=== PATIENT | male | born 1940 | race Caucasian/White ===

== ENCOUNTER 2022-06-06 08:22 | Inpatient (IN) ==
[2022-06-02 18:54] LABS: Appearance,Urine CLEAR (Clear); Bilirubin,Urine Negative (Negative); Color,Urine YELLOW; Culture Indicated,Urine No; Glucose,Urine (UA) Negative (Negative); Ketones,Urine Negative (Negative); Leukocyte Esterase,Urine Negative /uL (Negative); Nitrate,Urine Negative (Negative); Protein,Urine Negative (Negative); Specific Gravity,Urine 1.016 (1.000-1.035); Urine Blood Negative (Negative); Urobilinogen,Urine Negative
[2022-06-02 18:57] LABS: Basophils # (Auto) 0.06 K/mcL (0.00-0.30); Basophils % (Auto) 0.7 % (0.0-2.0); Eosinophils # (Auto) 0.27 K/mcL (0.00-0.70); Eosinophils % (Auto) 3.4 % (0.0-7.0); Hematocrit 49.2 % (40.1-51.0); Hemoglobin 16.5 g/dL (13.7-17.5); Lymphocytes # (Auto) 1.13 K/mcL (1.50-4.80); Lymphocytes % (Auto) 14.1 % (15.5-49.0); Mean Cell Volume 96.3 fL (80.0-100.0); Mean Corpuscular HGB Conc 33.5 g/dL (31.0-36.0); Mean Platelet Volume 9.9 fL (8.8-12.5); Monocytes # (Auto) 0.72 K/mcL (0.10-0.90); Neutrophils % (Auto) 72.6 % (38.0-78.0); Platelet Count 250 K/mcL (140-440); RBC 5.11 M/mcL (4.63-6.08); Red Cell Distribution Width 13.2 % (11.5-14.5)
[2022-06-02 19:07] LABS: INR 2.8 (0.9-1.1)
[2022-06-02 19:17] LABS: Hemoglobin A1C 6.9 % Hgb (4.0-6.0)
[2022-06-02 19:19] LABS: ALT/SGPT 21 U/L (<40); AST/SGOT 19 U/L (<40); Albumin 4.4 gm/dL (3.2-5.2); Albumin/Globulin Ratio 1.7 (1.0-2.3); Alkaline Phosphatase 106 U/L (39-117); Bilirubin,Total 0.4 mg/dL (0.1-1.0); Blood Urea Nitrogen 21 mg/dL (8-23); Carbon Dioxide 26 mmol/L (22-30); Chloride 102 mmol/L (96-108); Globulin 2.6 gm/dL (2.2-3.7); Glomerular Filtration Rate 43; Glucose 171 mg/dL (70-105)
--- NOTE | 2022-06-03 09:12 | EKG ---
[facility] Test Date: 2022-06-02 Pat Name: Zak Harper Department: MEDSUR Room: Gender: Male General Handling Supervisor: : 1940 Requested By: Abhay Cat Order Number: [id number] Reading MD: Alcides Mccall Measurements Intervals [place] Rate: 60 P: 0 DE: 172 QRS: 209 QRSD: 132 T: 53 QT: 472 QTc: 472 Interpretive Statements Ventricular-paced complexes No further analysis attempted due to paced rhythm Electronically Signed On 06-03-2022 9:12:04 PDT by Alcides Mccall /store/[email or web address]/[id number]
[~2022-06-06 08:22] MED LIST: 0.9 % SODIUM CHLORIDE 250 ML IV SCH; IPRATROPIUM/ALBUTEROL 3 ML AMPUL.NEB NEB PRN; SCOPOLAMINE 1 PATCH PATCH TOPICAL PRN; ceFAZolin 2 GM in DEXTROSE 5% IN WATER 50 ML IV SCH
[2022-06-06 09:00] LABS: POC Calcium, Ionized 1.23 (1.16-1.32); POC Creatinine 1.6 (0.6-1.2); POC Potassium 5.5 (3.3-5.1)
[2022-06-06 09:01] LABS: POC INR 1.2 (0.8-1.2); POC Pro Time 13.9 (11.9-14.5)
[2022-06-06 13:37] LABS: POC Calcium, Ionized 1.31 (1.16-1.32); POC Creatinine 1.5 (0.6-1.2); POC Potassium 5.3 (3.3-5.1)
[2022-06-06] MEDS ORDERED: PROPOFOL 1,000 MG/100 ML BOTTLE IV ONE (14:06)
[2022-06-06] MEDS ORDERED: ROCURONIUM 10 MG/ML ML IV ONE (14:06)
[2022-06-06] MEDS ORDERED: PHENYLephrine 1 MG/10 ML SYRINGE (ANEST) ONE (14:06)
[2022-06-06] MEDS ORDERED: fentaNYL 100 MCG/2 ML VIAL IV ONE (14:06)
[2022-06-06] MEDS ORDERED: TRANEXAMIC ACID 1,000 MG/10 ML VIAL ONE (14:06)
[2022-06-06] MEDS ORDERED: SUGAMMADEX SODIUM 200 MG/2 ML VIAL IV ONE (14:06)
[2022-06-06] MEDS ORDERED: THROMBIN (BOVINE) 5,000 UNIT VIAL TOPICAL ONE (14:54)
[2022-06-06] MEDS ORDERED: BUPIVACAINE 0.25% 50 ML VIAL IJ ONE (14:54)
[2022-06-06] MEDS ORDERED: GELATIN SPONGE,ABSORBABLE 1 EACH SPONGE TOPICAL ONE (14:57)
[2022-06-06] MEDS ORDERED: LACTATED RINGERS 250 ML IV PRN ×2 (15:15→16:59)
[2022-06-06] MEDS ORDERED: MEPERIDINE 25 MG/ML VIAL IV PRN ×2 (15:15→16:59)
[2022-06-06] MEDS ORDERED: METOCLOPRAMIDE 10 MG/2 ML VIAL IV PRN ×2 (15:15→16:59)
[2022-06-06] MEDS ORDERED: METOPROLOL TARTRATE 5 MG/5 ML VIAL IV PRN ×2 (15:15→16:59)
[2022-06-06] MEDS ORDERED: IPRATROPIUM/ALBUTEROL 3 ML AMPUL.NEB NEB PRN ×2 (15:15→16:59)
[2022-06-06] MEDS ORDERED: PROMETHAZINE 25 MG/ML VIAL IM PRN ×2 (15:15→16:59)
[2022-06-06] MEDS ORDERED: LACTATED RINGERS 1,000 ML IV SCH ×2 (15:15→17:00)
[2022-06-06] MEDS ORDERED: MEPERIDINE 50 MG/ML VIAL IM PRN ×2 (15:15→16:59)
[2022-06-06] MEDS ORDERED: ONDANSETRON 4 MG/2 ML VIAL IV PRN ×3 (15:15→20:10)
[2022-06-06] MEDS ORDERED: ACETAMINOPHEN 1,000 MG/100 ML BAG IV ONE ×2 (15:15→16:59)
[2022-06-06] MEDS ORDERED: NALOXONE HCL 0.4 MG/ML VIAL IV PRN ×2 (15:15→16:59)
[2022-06-06] MEDS ORDERED: fentaNYL 100 MCG/2 ML VIAL IV PRN ×2 (15:15→16:59)
[2022-06-06] MEDS ORDERED: METHOCARBAMOL 1,000 MG/10 ML VIAL IV PRN ×2 (15:15→16:59)
[2022-06-06] MEDS ORDERED: PROMETHAZINE 25 MG/ML VIAL IV PRN ×2 (15:15→16:59)
[2022-06-06] MEDS ORDERED: HYDROmorphone 0.5 MG/0.5 ML SYRINGE IV PRN (16:59)
[2022-06-06] MEDS ORDERED: morphine 2 MG/ML VIAL IV PRN (16:59)
--- NOTE | 2022-06-06 17:29 | Brief Operative Note ---
Brief Operative Note Date of procedure: 06/06/22 Pre-op diagnosis: stenosis Post-op diagnosis: same Procedure: decompression and fusion L4/5 Grafts/Implants: Yes Anesthesia: GETA Findings: stenosis Complications: none Surgeon: Elian Galan Chief Clerk Shelter: Franca Johnson Estimated blood loss (cc): 200 Specimens Removed/Pathology: none sent Condition: stable Disposition: PACU
[2022-06-06] MEDS ORDERED: METHOCARBAMOL 750 MG TABLET PO PRN (17:33)
[2022-06-06] MEDS ORDERED: CLOBETASOL PROPIONATE 1 DOSE TUBE TOPICAL PRN (17:38)
[2022-06-06] MEDS ORDERED: NITROGLYCERIN 0.4 MG TAB.SUBL SL PRN (17:38)
[2022-06-06] MEDS: 0.9 % SODIUM CHLORIDE 1,000 ML IV SCH (19:03)
--- NOTE | 2022-06-06 19:37 | XRay Report ---
HISTORY: FINDINGS: IMPRESSION: 1.1 minute of fluoroscopy time was used. Interpreted and Authenticated by: Fransico Zacarias 06/06/22
[2022-06-06] MEDS: HYDROmorphone 1 MG/ML SYRINGE IV PRN ×2 (19:52→21:37)
[2022-06-06] MEDS ORDERED: ONDANSETRON 4 MG/2 ML VIAL ONE (20:26)
[2022-06-06] MEDS ORDERED: SACUBITRIL VALSARTAN PO SCH (21:00)
[2022-06-06] MEDS ORDERED: WARFARIN 2.5 MG TABLET PO SCH (21:00)
[2022-06-06] MEDS: GABAPENTIN 100 MG CAPSULE PO SCH (21:39)
[2022-06-06] MEDS: ATORVASTATIN 40 MG TABLET PO SCH (21:39)
[2022-06-06] MEDS: DOCUSATE SODIUM 100 MG CAPSULE PO SCH (21:39)
[2022-06-06] MEDS: MAGNESIUM OXIDE 400 MG TABLET PO SCH (21:39)
[2022-06-06] MEDS: METOPROLOL SUCCINATE 50 MG TAB.XL.24H PO SCH (21:39)
[2022-06-06] MEDS: SENNOSIDES 1 TABLET PO SCH (21:41)
[2022-06-06] MEDS: ceFAZolin 1 GM VIAL IV SCH (21:55)
[2022-06-07] MEDS: 0.9 % SODIUM CHLORIDE 10 ML SYRINGE IV SCH ×4 (00:26→20:29)
[2022-06-07] MEDS: 0.9 % SODIUM CHLORIDE 1,000 ML IV SCH ×4 (04:41→20:12)
[2022-06-07] MEDS: ceFAZolin 1 GM VIAL IV SCH (05:09)
[2022-06-07] MEDS ORDERED: 0.9 % SODIUM CHLORIDE 1,000 ML BAG IV ONE (05:28)
[2022-06-07] MEDS ORDERED: 0.9 % SODIUM CHLORIDE 500 ML IV ONE (05:33)
[2022-06-07 06:59] LABS: Hematocrit 42.6 % (40.1-51.0); Hemoglobin 13.9 g/dL (13.7-17.5)
[2022-06-07 07:17] LABS: INR 1.1 (0.9-1.1); Prothrombin Time 14.3 sec (11.9-14.5)
--- NOTE | 2022-06-07 07:27 | General Surgery Progress Note ---
SUBJECTIVE Subjective Patient information: Note initiated : 06/07/22 at 7:25 am Service Date, if different from initiated Date: [] Patient: Zak Harper 81 y/o M admitted on 06/06/22 for L4-5 Anterior Lateral Interbody Fusion with. Chief Complaint: [] Principal diagnosis: spondylolisthesis Interval history: no issues Pertinent ROS: neg Constitutional Vitals: Vital Signs Temp Pulse Resp BP Pulse Ox O2 Del Method O2 Flow Rate 98.5 F 59 L 16 82/44 94 1 06/07/22 02:51 06/07/22 02:51 06/07/22 02:51 06/07/22 05:15 06/07/22 02:51 06/07/22 02:51 06/07/22 02:51 Period Temp Pulse Resp BP Sys/Ac Pulse Ox O2 Del Method O2 Flow Rate Last 24 Hr 96.9 F-98.5 F 58-100 11- 82-137/44-84 91-100 Nasal Cannula- Room Air 1-6 Intake and Output 06/06/22 06/07/22 06/07/22 21:59 05:59 13:59 Intake Total 1050 2163 Output Total 260 230 Balance 790 1933 Weight 218 lb 4.8 oz Intake & Output: Intake & Output 06/06/22 06/07/22 06/07/22 21:59 05:59 13:59 Intake Total 1050 2163 Output Total 260 230 Balance 790 1933 Weight 218 lb 4.8 oz Intake: IV 150 963 Sodium Chloride 0.9% 1,000 ml @ 963 100 mls/hr IV .Q10H [facility] Rx#: [id number] Ancef 2 gm In Dextrose 5% in 50 Water 50 ml @ 100 mls/hr IV PREOP [facility] Rx#:[id number] Oral 1200 IV - Manual Only 900 Output: Drainage 20 Back 10 Left LOUANN Drain 10 Drainage 10 10 Left LOUANN Drain 10 Lower Back LOUANN Drain 10 Urine Catheter Amount 250 200 Other: Urine Appearance Clear Clear Urine Color Dark Yellow Dark Yellow Urine Odor Strong Normal Neurological Exam Neurological exam: Present normal gait Additional comments: neuro exam normal A/P Assessment and plan (1) Spinal stenosis at L4-L5 level: Status: Acute Plan mobilize with pt Narrative A/P Narrative: as mobilize Time Spent With Patient Time: Total time spent is greater than 50% in coordination of care (as documented) at patient's floor/unit and/or counseling patient:
[2022-06-07 07:43] LABS: Blood Urea Nitrogen 27 mg/dL (8-23); Calcium 8.7 mg/dL (8.6-10.4); Carbon Dioxide 22 mmol/L (22-30); Chloride 100 mmol/L (96-108); Glomerular Filtration Rate 43; Glucose 249 mg/dL (70-105)
[2022-06-07] MEDS ORDERED: 0.9 % SODIUM CHLORIDE 500 ML IV SCH (08:20)
[2022-06-07] MEDS ORDERED: INSULIN REGULAR, HUMAN 1 UNIT/0.01 ML UNIT IV SCH (08:20)
[2022-06-07] MEDS ORDERED: DEXTROSE 31 GM ORAL.SUSP PO PRN (08:22)
[2022-06-07] MEDS ORDERED: DEXTROSE 50% 50 ML VIAL IV PRN (08:22)
[2022-06-07] MEDS ORDERED: DEXTROSE 50% 50 ML SYRINGE IV SCH (08:30)
--- NOTE | 2022-06-07 08:31 | Operative Note ---
DATE OF OPERATION: 06/06/2022 DATE OF PROCEDURE: 06/06/2022 PREOPERATIVE DIAGNOSIS: Lumbar stenosis with instability, L4-L5. POSTOPERATIVE DIAGNOSIS: Lumbar stenosis with instability, L4-L5. OPERATION PROPOSED: 1. Anterior interbody fusion via lateral retroperitoneal approach, L4-L5 with application of prosthetic device interbody space. 2. Lumbar decompression with decompression of central canal, lateral recess, and neural foramen L4-L5, posterior instrumentation, L4-L5 posterior/posterolateral fusion L4-L5 and lumbar decompression with decompression of central canal, lateral recess, and neural foramen L4-L5. OPERATION PERFORMED: Same. SURGEON: Elian Galan M.D. MUFFLER HAND: Franca Johnson PA-C. The expertise and technical skill of this provider were required throughout the case. The PA assisted with preoperative coordination, intraoperative retraction, wound closure, and dressing and splint application, as well as postoperative documentation and care coordination. INDICATIONS: This is a gentleman who has had quite disabling claudication symptoms. He has stenosis with a spondylolisthesis, L4-L5 and has elected to proceed with lumbar decompression and fusion. DESCRIPTION OF PROCEDURE: Informed consent was obtained. He was taken to the operating room and provided with appropriate anesthetic and prophylactic antibiotics. He was carefully positioned. His flank was prepped sterilely. A standard retroperitoneal approach to the spine was performed. I sequentially dilated and placed a self-retaining retractor L4-L5. The disc was incised. I passed a Mcdonough, freeing the contralateral annulus. I then extensively curetted the disc space. I tried a variety of components and ultimately selected a 12 x 22 x 50 XLIF cage after thoroughly prepping the disc space. We removed the disc and debrided down to subchondral bone. This cage was filled with morselized graft and impacted into the site prepared for it. I then turned the patient in the prone position. A midline incision was made. I dissected down to expose spinous process and lamina of L4-L5. A lumbar decompression by removing the inferior one-half spinous process and lamina of L4 and the leading edge of L5 was performed essentially Galloway-Rivera osteotomies were done by removing a substantial amount of the facet joint. I then placed pedicle screws through stab wounds in the fascia. I applied a rosa in the top-loading pedicle screws. I compressed across the interbody graft and tightened and torqued the rosa and pedicle screws. Bone graft was applied into and against the facet joints and posterolateral aspect of the spine to allow for fusion. The wounds had been irrigated thoroughly. Hemostasis was ensured. We closed over a deep drain with an 0 Vicryl in interrupted fashion, 2-0 Vicryl inverted deep dermal and a running subcuticular. Procedure was tolerated well. No complications. ESTIMATED BLOOD LOSS: 100 mL. GDD:kaveh Job ID: [id number] Doc ID: [id number] Elian Galan MD
--- NOTE | 2022-06-07 08:32 | Internal Medicine Consult Note ---
HPI Date of Consult Consult Date: 06/07/22 Primary Care Provider: Obdulia Jason Consult Narrative Patient Information: Note initiated : 06/07/22 at 8:28 am Service Date, if different from initiated Date: [] Patient: Zak Harper 81 y/o M admitted on 06/06/22 for L4-5 Anterior Lateral Interbody Fusion with. Chief Complaint: [] Zak Arana is a 81-year-old male with a history of hypertension, type 2 diabetes mellitus, atrial fibrillation, cardiomyopathy, coronary artery disease, chronic kidney disease stage III, prior stroke, lumbar spondylolisthesis complicated by spinal stenosis who underwent L4-L5 decompression and fusion on 06/06/2022. Postoperatively the patient had hyperkalemia. Hospital medicine was consulted for medical comanagement. Potassium level was 5.9, the patient's p otassium levels on the day of surgery were 5.5 and 5.3. The patient takes Entresto for cardiomyopathy. I suspect this is the reason for hyperkalemia. The patient otherwise seems to be doing well after surgery however has had low urine output placing him at risk for an acute on chronic kidney disease injury. Review of systems Constitutional: no fever, fatigue, or weight loss Eyes: no vision changes or pain Cardiovascular: no chest pain, no palpitations Respiratory: no cough or dyspnea Gastrointestinal: no abdominal pain, no nausea, vomiting, or diarrhea Genitourinary: no dysuria or difficulty voiding Musculoskeletal: Positive for back pain Integumentary: no skin lesion or wound Neurological: no focal weakness or numbness Psychiatric: no anxiety or depression Physical exam Head: Atraumatic, normal inspection. Eyes: normal appearance, no scleral icterus. Neck: full ROM Respiratory: no respiratory distress. Cardiovascular: normal rate and rhythm, S1, S2. GI/Abdominal: soft, nontender, no guarding. : [place] catheter present Extremities: full range of motion, nontender. Neurological: CN II-XII intact, intact motor, intact sensation. Psychiatric: normal mood. Skin: warm, normal color cc:: CC: Elian Galan [facility] All Active Problems (Updated 06/07/22 @ 07:27 by Elian Galan MD) Spinal stenosis at L4-L5 level (Acute) Chronic SI joint pain (Acute) Other low back pain (Acute) Iron deficiency anemia, unspecified (Chronic) Anemia due to stage 3b chronic kidney disease (Chronic) Hyperparathyroidism (Chronic) Localized edema due to fluid overload (Chronic) Chronic kidney disease (CKD) stage G3b/A2, moderately decreased glomerular filtration rate (GFR) between 30-44 mL/min/1.73 square meter and albuminuria creatinine ratio between 30-299 mg/g (Chronic) BPH loc w urin obs/LUTS (Acute) Gross hematuria (Acute) Incomplete bladder emptying (Acute) Obstructive nephropathy due to benign prostatic hyperplasia (Chronic) History of herniorrhaphy (Chronic ~05/2015) History of cataract extraction (Chronic ~10/2015) History of cardiac defibrillator placement (Chronic) Left bundle branch block (Chronic) First degree AV block (Chronic) Paroxysmal atrial fibrillation (Chronic) COPD (chronic obstructive pulmonary disease) (Chronic) Ischemic dilated cardiomyopathy (Chronic) Hyperkalemia (Chronic) Diabetes type 2, controlled (Chronic) Heart disease (Chronic) Personal history of venous thrombosis and embolism (Chronic) Radiculopathy, lumbar region (Chronic) Low back pain (Chronic) Spinal stenosis, lumbar region with neurogenic claudication (Chronic) Heart failure (Chronic) Atrial fibrillation with RVR (Acute) Chronic passive hepatic congestion (Chronic) senior care (current) use of aspirin (Chronic) History of tobacco use (Chronic) History of acute myocardial infarction (Chronic) History of CVA (cerebrovascular accident) (Chronic) Snoring (Chronic) Lumbar spondylosis (Chronic) Degenerative disc disease, lumbar (Chronic) Lumbar facet arthropathy (Chronic) Neurogenic claudication due to lumbar spinal stenosis (Chronic) Lumbar radiculopathy, right (Chronic) Cardiomyopathy, ischemic (Chronic) Pure hypercholesterolemia, unspecified (Chronic) Chronic systolic (congestive) heart failure (Chronic) Hypertensive heart and chronic kidney disease with heart failure and stage 1 through stage 4 chronic kidney disease, or unspecified chronic kidney disease (Chronic) DM (diabetes mellitus), type 2 with renal complications (Chronic) Proximal muscle weakness (Chronic) Carpal tunnel syndrome, bilateral (Chronic) Shoulder pain, bilateral (Chronic) Inflammatory polyarthropathy (Chronic) Benign paroxysmal positional vertigo (Acute) Hx of tonsillectomy (Chronic) Hx of coronary angioplasty (Chronic) Hx of cardiac catheterization (Chronic 06/14/08) Transient ischemic attack (Chronic 10/01/08) Psoriasis (Chronic) Obesity (Chronic) Bone neoplasm (Chronic) Myocardial infarction, old (Chronic) Local infection of skin and subcutaneous tissue (Chronic) Benign prostatic hypertrophy with lower urinary tract symptoms (LUTS) (Chronic 09/23/13) Hypertension (Chronic) Bilateral inguinal hernia without obstruction or gangrene (Chronic 09/20/13) Inguinal hernia (Chronic) Hematuria, microscopic (Chronic 09/23/13) Hematuria (Chronic) Dyslipidemia (Chronic) Diabetes mellitus, type II (Chronic) senior care (current) use of anticoagulants (Chronic) Cough (Chronic) Coronary artery disease (Chronic) Cerebrovascular accident (Chronic) Carpal tunnel syndrome (Chronic) Bladder outlet obstruction (Chronic) Medical History (Updated 06/07/22 @ 07:27 by Elian Galan MD) Benign paroxysmal positional vertigo Benign prostatic hypertrophy with lower urinary tract symptoms (LUTS) (09/23/13) Bilateral inguinal hernia without obstruction or gangrene (09/20/13) Bladder outlet obstruction Bone neoplasm neoplasm of unspec nature; bone, soft tissue, and skin Cardiomyopathy, ischemic Carpal tunnel syndrome Carpal tunnel syndrome, bilateral Cerebrovascular accident Chronic SI joint pain Chronic systolic (congestive) heart failure COPD (chronic obstructive pulmonary disease) Coronary artery disease Cough Degenerative disc disease, lumbar Diabetes mellitus, type II Diabetes type 2, controlled DM (diabetes mellitus), type 2 with renal complications Dyslipidemia First degree AV block Heart disease Heart failure Hematuria Hematuria, microscopic (09/23/13) History of acute myocardial infarction History of CVA (cerebrovascular accident) History of tobacco use Hx of cardiac pacemaker Hyperkalemia Hypertension Hypertensive heart and chronic kidney disease with heart failure and stage 1 through stage 4 chronic kidney disease, or unspecified chronic kidney disease Inflammatory polyarthropathy Inguinal hernia Ischemic dilated cardiomyopathy Left bundle branch block Local infection of skin and subcutaneous tissue Soft tissue & skin senior care (current) use of anticoagulants Coumadin use senior care (current) use of aspirin Low back pain Lumbar facet arthropathy Lumbar radiculopathy, right Lumbar spondylosis Myocardial infarction, old 1982,1997 another small one, 06/14/2008 Neurogenic claudication due to lumbar spinal stenosis Obesity Paroxysmal atrial fibrillation Personal history of venous thrombosis and embolism Proximal muscle weakness Psoriasis Pure hypercholesterolemia, unspecified Radiculopathy, lumbar region Shoulder pain, bilateral Snoring Spinal stenosis, lumbar region with neurogenic claudication Transient ischemic attack (10/01/08) Surgical History History of cardiac defibrillator placement History of cataract extraction (~10/2015) Bilateral History of herniorrhaphy (~05/2015) Left -- Dr. Wright/Shonda Griffith History of photovaporization of prostate History of surgery TF MARA #1 Bilat L4-5 w/o sed 06/06/2017 TF MARA #1 Right L4-5 w/o sed 10/29/15 LESI #3 L4-5 w/o sed 08/26/2015 LESI #2 L4-5 w/o sed 04/30/15 LESI #1 L4-5 w/o sed 03/25/2015 Hx of cardiac catheterization (06/14/08) Angioplasty also Hx of coronary angioplasty Hx of tonsillectomy Family History Sister Malignant neoplasm of brain Diabetes mellitus Malignant neoplasm of stomach Brother Diabetes mellitus Father Diabetes mellitus Cancer Social History marital status: smoking status: Former smoker alcohol intake frequency: does not drink substance use type: does not use MEDS/ALLERGIES Home Medications and Allergies Home Medications Medication Instructions Recorded Confirmed Type aspirin 81 mg tablet,delayed 81 mg PO QAM 07/09/15 06/06/22 History release cyanocobalamin (vitamin B-12) 1,000 mcg PO QAM 07/09/15 06/06/22 History 1,000 mcg tablet nitroglycerin 0.4 mg sublingual 0.4 mg sublingual Q5MIN PRN Chest 07/09/15 06/06/22 History tablet Pain atorvastatin 40 mg tablet 40 mg PO HS 08/03/18 06/06/22 History ascorbic acid (vitamin C) 1,000 mg 1,000 mg PO DAILY 02/27/19 06/06/22 History tablet betamethasone dipropionate 0.05 % 1 gm topical PRN PRN Rash 02/27/19 06/06/22 History topical cream glipizide 5 mg tablet, extended 2.5 mg PO DAILY 02/27/19 06/06/22 History release 24 hr magnesium oxide 400 mg (241.3 mg 400 mg PO HS 02/27/19 06/06/22 History magnesium) tablet torsemide 20 mg tablet 20 mg PO QDAY 01/09/20 06/06/22 History amiodarone 200 mg tablet 100 mg PO QDAY 09/02/20 06/06/22 History clobetasol 0.05 % topical cream 1 applic topical PRN PRN Itching 09/02/20 06/06/22 History metoprolol succinate 100 mg 100 mg PO BID 09/02/20 06/06/22 History tablet,extended release 24 hr warfarin 5 mg tablet 2.5 - 5 mg PO DIRECTED 09/02/20 06/06/22 History calcium 500 mg tablet 1,000 mg PO QAM 12/04/20 06/06/22 History cholecalciferol (vitamin D3) 25 25 mcg PO QDAY 12/04/20 06/06/22 History mcg (1,000 unit) tablet (Vitamin D3) zinc 25 mg tablet 30 mg PO 3XW 12/04/20 06/06/22 History coenzyme Q10 150 mg capsule 300 mg PO DAILY 04/09/21 06/06/22 History gabapentin 100 mg capsule See Rx Instructions PO QDAY #90 12/14/21 06/06/22 Rx caps sacubitril 24 mg-valsartan 26 mg 1 tab PO BID 06/02/22 06/06/22 History tablet (Entresto) sacubitril 49 mg-valsartan 51 mg 1 tab PO BID 06/02/22 06/06/22 History tablet (Entresto) B Complex-Iron 25 mg PO BIDWMEAL iron 06/06/22 06/06/22 History hydrocodone 7.5 mg-acetaminophen 1 - 2 tab PO Q4HP PRN Pain #50 tabs 06/07/22 Rx 325 mg tablet hydrocodone 7.5 mg-acetaminophen 1 - 2 tab PO Q4HP PRN Per Pain 06/07/22 Rx 325 mg tablet Protocol #50 tabs methocarbamol 750 mg tablet 750 mg PO Q6HP PRN Muscle Spasm 06/07/22 Rx #30 tabs Allergies Allergy/AdvReac Type Severity Reaction Status Date / Time Amoxicillin [From Augmentin] Allergy Unknown unknown Verified 06/02/22 15:48 clavulanic acid Allergy Unknown unknown Verified 06/02/22 15:48 [From Augmentin] clopidogrel [From Plavix] Allergy Unknown unknown Verified 06/02/22 15:48 metformin Allergy Unknown Unknown Verified 06/02/22 15:48 rosuvastatin Allergy Unknown Unknown Verified 06/02/22 15:48 tamsulosin AdvReac Mild Dizziness Verified 06/06/22 05:53 EXAM Constitutional Vitals: Temp Pulse Resp BP Pulse Ox O2 Del Method O2 Flow Rate 97.8 F 75 17 104/70 91 1 06/07/22 08:11 06/07/22 08:11 06/07/22 08:11 06/07/22 08:11 06/07/22 08:11 06/07/22 08:11 06/07/22 02:51 DATA Data Completed and Pending Labs: Labs from last 24 hours 06/07/22 06/07/22 06/07/22 05:55 05:55 05:55 Hgb 13.9 Hct 42.6 POC Hct POC PT PT 14.3 POC INR INR 1.1 POC Sodium Sodium 134 POC Potassium Potassium 5.9 H* POC Chloride Chloride 100 Carbon Dioxide 22 POC Total CO2 Anion Gap 12.0 POC BUN BUN 27 H Creatinine 1.5 H POC Creatinine GFR Calculation 43 Glucose 249 H POC Glucose Calcium 8.7 POC WB Ioniz Calcium 06/06/22 06/06/22 06/06/22 13:34 08:56 08:51 Hgb Hct POC Hct 48.0 49.0 POC PT 13.9 PT POC INR 1.2 INR POC Sodium 138 137 Sodium POC Potassium 5.3 H 5.5 H Potassium POC Chloride 102 103 Chloride Carbon Dioxide POC Total CO2 27.0 27.0 Anion Gap POC BUN 25 H 30 H BUN Creatinine POC Creatinine 1.5 H 1.6 H GFR Calculation Glucose POC Glucose 104 133 H Calcium POC WB Ioniz Calcium 1.31 1.23 A/P Narrative A/P Narrative: Assessment: 81-year-old male with a history of hypertension, type 2 diabetes mellitus, atrial fibrillation, cardiomyopathy, coronary artery disease, chronic kidney disease stage III, prior stroke, lumbar spondylolisthesis complicated by spinal stenosis who underwent L4-L5 decompression and fusion on 06/06/2022. The postoperative course was complicated by hyperkalemia, hospital medicine was consulted for medical comanagement. #Hyperkalemia likely secondary to Entresto #Chronic kidney disease stage III #Heart failure with reduced ejection fraction, stable #Paroxysmal atrial fibrillation #Coronary artery disease, stable #Type 2 diabetes mellitus #History of stroke #Spondylolisthesis status post L4/L5 decompression and fusion 06/06/2022 Plan -Obtain EKG, if changes noted secondary to hyperkalemia will start IV calcium gluconate. -D50 and IV regular insulin. -IV fluid bolus, monitor urine output as patient is at risk for CARIE. -Monitor potassium and renal function closely. -Avoid Kayexalate until the patient is having bowel movements. -Humalog SSImedium dose. -Hold home glipizide for now. -Hold home Entresto for now. -Hold home torsemide for now as the patient is at risk for CARIE, will probably resume tomorrow. -Continue home amiodarone, aspirin, gabapentin, Toprol, nitro SL as needed. -Coumadin per pharmacy. -Pain management per orthopedic surgery. -Consistent carbohydrate diet. -PT and OT. -playground monitor until hyperkalemia resolves. -Remove [place] catheter when able. -DVT prophylaxis: Per orthopedic surgery preference. -CODE STATUS: Full -Disposition: Anticipate discharge to home when stable. If the patient has persistent hyperkalemia he might be a candidate for Veltassa. Time Spent With Patient Time: Total time spent is greater than 50% in coordination of care (as documented) at patient's floor/unit and/or counseling patient:
[2022-06-07] MEDS: ASCORBIC ACID 500 MG TABLET PO SCH (08:38)
[2022-06-07] MEDS: GABAPENTIN 100 MG CAPSULE PO SCH ×3 (08:38→20:26)
[2022-06-07] MEDS: CYANOCOBALAMIN (VITAMIN B-12) 500 MCG TABLET PO SCH (08:38)
[2022-06-07] MEDS: VITAMIN B COMPLEX 1 CAPSULE PO SCH (08:39)
[2022-06-07] MEDS: ASPIRIN 81 MG TAB.CHEW PO SCH (08:39)
[2022-06-07] MEDS: AMIODARONE HCL 200 MG TABLET PO SCH (08:39)
[2022-06-07] MEDS: CALCIUM (OYSTER SHELL) 500 MG TABLET PO SCH (08:39)
[2022-06-07] MEDS: DOCUSATE SODIUM 100 MG CAPSULE PO SCH ×2 (08:39→20:26)
[2022-06-07] MEDS: VITAMIN D3 25 MCG TABLET PO SCH (08:39)
[2022-06-07] MEDS: METOPROLOL SUCCINATE 50 MG TAB.XL.24H PO SCH ×2 (08:40→20:28)
[2022-06-07] MEDS ORDERED: TORSEMIDE 20 MG TABLET PO SCH (09:00)
[2022-06-07] MEDS ORDERED: COENZYME Q10 150 MG PO SCH (09:00)
[2022-06-07] MEDS ORDERED: glipiZIDE 5 MG TAB.XL.24H PO SCH (09:00)
[2022-06-07 11:06] LABS: Albumin 3.4 gm/dL (3.2-5.2); Blood Urea Nitrogen 28 mg/dL (8-23); Calcium 8.3 mg/dL (8.6-10.4); Carbon Dioxide 24 mmol/L (22-30); Chloride 99 mmol/L (96-108); Glomerular Filtration Rate 43; Glucose 299 mg/dL (70-105); Phosphorous 3.3 mg/dL (2.5-4.5)
[2022-06-07] MEDS: INSULIN LISPRO 1 UNIT/0.01 ML UNIT SQ SCH ×3 (11:34→20:25)
[2022-06-07] MEDS: HYDROCODONE/APAP 7.5/325MG TABLET PO PRN ×2 (12:29→20:26)
[2022-06-07] MEDS ORDERED: WARFARIN 2.5 MG TABLET PO SCH (14:00)
--- NOTE | 2022-06-07 14:44 | EKG ---
[facility] Test Date: 2022-06-07 Pat Name: Zak Harper Department: [facility]SUR Room: 106 Gender: Male Foundry Technician: : 1940 Requested By: Anand Heller Order Number: [id number] Reading MD: Alcides Mccall Measurements Intervals [place] Rate: 67 P: 0 LA: 59 QRS: 202 QRSD: 143 T: 99 QT: 490 QTc: 518 Interpretive Statements Atrial-ventricular dual-paced complexes No further analysis attempted due to paced rhythm Electronically Signed On 06-07-2022 14:44:05 PST by Alcides Mccall /store/[email or web address]/[id number]
[2022-06-07] MEDS: ATORVASTATIN 40 MG TABLET PO SCH (20:26)
[2022-06-07] MEDS: MAGNESIUM OXIDE 400 MG TABLET PO SCH (20:28)
[2022-06-07] MEDS: SENNOSIDES 1 TABLET PO SCH (20:28)
[2022-06-08] MEDS: 0.9 % SODIUM CHLORIDE 1,000 ML IV SCH ×2 (00:10→10:24)
[2022-06-08] MEDS: 0.9 % SODIUM CHLORIDE 10 ML SYRINGE IV SCH ×2 (05:07→14:14)
[2022-06-08 06:34] LABS: Hematocrit 39.7 % (40.1-51.0); Hemoglobin 13.3 g/dL (13.7-17.5)
--- NOTE | 2022-06-08 06:55 | General Surgery Progress Note ---
SUBJECTIVE Subjective Patient information: Note initiated : 06/08/22 at 6:55 am Service Date, if different from initiated Date: [] Patient: Zak Harper 81 y/o M admitted on 06/06/22 for L4-5 Anterior Lateral Interbody Fusion with. Chief Complaint: [] Principal diagnosis: spondylolisthesis Interval history: no complaints Constitutional Vitals: Vital Signs Temp Pulse Resp BP Pulse Ox O2 Del Method O2 Flow Rate 98.1 F 64 14 105/59 92 1 06/08/22 03:42 06/08/22 03:42 06/08/22 03:42 06/08/22 03:42 06/08/22 03:42 06/08/22 03:42 06/07/22 02:51 Period Temp Pulse Resp BP Sys/Ac Pulse Ox O2 Del Method O2 Flow Rate Last 24 Hr 97.8 F-98.3 F 63-88 14-20 86-116/51-70 91-97 Room Air-Room Air Intake and Output 06/07/22 06/08/22 06/08/22 21:59 05:59 13:59 Intake Total 1395 240 Output Total 502 1022 Balance 893 -782 Weight 225 lb 6.4 oz Intake & Output: Intake & Output 06/07/22 06/08/22 06/08/22 21:59 05:59 13:59 Intake Total 1395 240 Output Total 502 1022 Balance 893 -782 Weight 225 lb 6.4 oz Intake: IV 915 Sodium Chloride 0.9% 1,000 ml @ 915 100 mls/hr IV .Q10H [facility] Rx#: [id number] Oral 480 240 Output: Drainage 2 2 Lower Back LOUANN Drain 2 2 Urine Catheter Amount 500 1020 Other: Meal Dinner Percent of Meal Consumed 100% Feeding Ability Independent Urine Appearance Clear Clear Uretheral ([place]) Clear Urine Color Light Farideh Light Farideh Uretheral ([place]) Light Farideh Urine Odor Normal Normal Uretheral ([place]) Normal Additional findings Additional findings: neuro ok A/P Assessment and plan Plan mobilize Time Spent With Patient Time: Total time spent is greater than 50% in coordination of care (as documented) at patient's floor/unit and/or counseling patient:
[2022-06-08] MEDS: INSULIN LISPRO 1 UNIT/0.01 ML UNIT SQ SCH ×2 (06:58→11:33)
[2022-06-08 07:06] LABS: INR 1.1 (0.9-1.1); Prothrombin Time 14.8 sec (11.9-14.5)
[2022-06-08 07:10] LABS: Carbon Dioxide 21 mmol/L (22-30)
[2022-06-08] MEDS ORDERED: ZINC SULFATE 50 MG CAPSULE PO SCH (09:00)
[2022-06-08] MEDS ORDERED: TORSEMIDE 10 MG TABLET PO SCH (09:00)
[2022-06-08] MEDS: CALCIUM (OYSTER SHELL) 500 MG TABLET PO SCH (09:16)
[2022-06-08] MEDS: AMIODARONE HCL 200 MG TABLET PO SCH (09:17)
[2022-06-08] MEDS: VITAMIN D3 25 MCG TABLET PO SCH (09:17)
[2022-06-08] MEDS: ASPIRIN 81 MG TAB.CHEW PO SCH (09:17)
[2022-06-08] MEDS: CYANOCOBALAMIN (VITAMIN B-12) 500 MCG TABLET PO SCH (09:17)
[2022-06-08] MEDS: METOPROLOL SUCCINATE 50 MG TAB.XL.24H PO SCH (09:17)
[2022-06-08] MEDS: VITAMIN B COMPLEX 1 CAPSULE PO SCH (09:18)
[2022-06-08] MEDS: ASCORBIC ACID 500 MG TABLET PO SCH (09:18)
[2022-06-08] MEDS: DOCUSATE SODIUM 100 MG CAPSULE PO SCH (09:18)
[2022-06-08] MEDS: GABAPENTIN 100 MG CAPSULE PO SCH ×2 (09:18→14:14)
[2022-06-08] MEDS: HYDROCODONE/APAP 7.5/325MG TABLET PO PRN ×2 (10:14→16:12)
--- NOTE | 2022-06-08 13:41 | Discharge Summary ---
Discharge Provider Provider IMPORTANT FOLLOW-UP INFORMATION FOR PCP: Patient information: Note initiated : 06/08/22 at 1:39 pm Service Date, if different from initiated Date: [] Patient: Zak Harper 81 y/o M admitted on 06/06/22 for L4-5 Anterior Lateral Interbody Fusion with. Chief Complaint: [] Date of admission: 06/06/22 08:22 Discharge date: 06/08/22 Primary care physician: Obdulia Jason Consults: 06/07/22 07:48 Consult to Physician [CONS] Routine Comment: hyperkalemia Consulting Provider: Anand Heller Reason For Exam: Physician to Consult COURSE Hospital Course Hospital course: Zak Arana is a 81-year-old male with a history of hypertension, type 2 diabetes mellitus, atrial fibrillation, cardiomyopathy, coronary artery disease, chronic kidney disease stage III, prior stroke, lumbar spondylolisthesis complicated by spinal stenosis who underwent L4-L5 decompression and fusion on 06/06/2022. Postoperatively the patient had hyperkalemia. Hospital medicine was consulted for medical comanagement. Potassium level was 5.9, the patient's potassium levels on the day of surgery were 5.5 and 5.3. The patient takes Entresto for cardiomyopathy. I suspect this is the reason for hyperkalemia. The patient otherwise seems to be doing well after surgery however has had low urine output placing him at risk for an acute on chronic kidney disease injury. 06/08 Stable overnight. Potassium normal with morning labs, the patient developed transient hyponatremia which resolved with an afternoon check of his sodium level. Discharged to home, follow-up with orthopedic surgery. Physical exam Head: Atraumatic, normal inspection. Eyes: normal appearance, no scleral icterus. Neck: full ROM Respiratory: no respiratory distress. Cardiovascular: normal rate and rhythm, S1, S2. GI/Abdominal: soft, nontender, no guarding. : [place] catheter present Extremities: full range of motion, nontender. Neurological: CN II-XII intact, intact motor, intact sensation. Psychiatric: normal mood. Skin: warm, normal color Discharge diagnosis: Severe hyperkalemia Secondary discharge diagnosis: Hyponatremia Time Spent with Patient Time attestation: Total time spent providing and/or coordinating discharge services: Time spent: Less than 30 minutes EXAM Constitutional Vitals: Temp Pulse Resp BP Pulse Ox O2 Del Method O2 Flow Rate 98.6 F 64 20 126/68 97 1 06/08/22 12:06 06/08/22 03:42 06/08/22 12:06 06/08/22 12:06 06/08/22 12:06 06/08/22 12:06 06/07/22 02:51 Discharge Data Data Completed and Pending Labs on day of discharge: Labs from last 24 hours 06/08/22 06/08/22 06/08/22 12:00 05:28 05:28 Hgb Hct PT 14.8 H INR 1.1 Sodium 133 123 L Potassium 3.5 Chloride 94 L Carbon Dioxide 21 L Anion Gap 8.0 BUN 12 Creatinine 0.8 GFR Calculation 84 Glucose 80 Uric Acid 5.3 Calcium 7.8 L Phosphorus 2.0 L Magnesium 1.7 Total Bilirubin 1.7 H Direct Bilirubin 0.9 H GGT 132 H AST 108 H ALT 63 H Alkaline Phosphatase 276 H Lactate Dehydrogenase 166 Total Protein 5.7 L Albumin 1.7 L Globulin 4.0 H Albumin/Globulin Ratio 0.4 L Triglycerides 50 06/08/22 05:28 Hgb 13.3 L Hct 39.7 L PT INR Sodium Potassium Chloride Carbon Dioxide Anion Gap BUN Creatinine GFR Calculation Glucose Uric Acid Calcium Phosphorus Magnesium Total Bilirubin Direct Bilirubin GGT AST ALT Alkaline Phosphatase Lactate Dehydrogenase Total Protein Albumin Globulin Albumin/Globulin Ratio Triglycerides Discharge Plan Patient/Caregiver Discharge Instructions Activity: increase activity as tolerated Diet: Consistent Carbohydrate Prescriptions: New methocarbamol 750 mg Tablet 750 mg PO Q6HP PRN (Reason: Muscle Spasm) Qty: 30 0RF hydrocodone-acetaminophen 7.5-325 mg Tablet 1 - 2 tab PO Q4HP PRN (Reason: Per Pain Protocol) Qty: 50 0RF hydrocodone-acetaminophen 7.5-325 mg Tablet 1 - 2 tab PO Q4HP PRN (Reason: Pain) Qty: 50 0RF Continued aspirin 81 mg tablet,delayed release (DR/EC) 81 mg PO QAM Rx Instructions: STOPPED FOR SUGERY nitroglycerin 0.4 mg tablet, sublingual 0.4 mg SUBLINGUAL Q5MIN PRN (Reason: Chest Pain) cyanocobalamin (vitamin B-12) 1,000 mcg tablet 1,000 mcg PO QAM torsemide 20 mg tablet 20 mg PO QDAY coenzyme Q10 150 mg capsule 300 mg PO DAILY Rx Instructions: STOPPED FOR SURGERY atorvastatin 40 mg tablet 40 mg PO HS amiodarone 200 mg tablet 100 mg PO QDAY clobetasol 0.05 % cream 1 applic TOPICAL PRN PRN (Reason: Itching) warfarin 5 mg tablet 2.5 - 5 mg PO DIRECTED Rx Instructions: 2.5 MG DAILY metoprolol succinate 100 mg tablet extended release 24 hr 100 mg PO BID gabapentin 100 mg capsule See Rx Instructions PO QDAY Qty: 90 2RF Rx Instructions: Week 1: Take 1 cap QHS Week 2: Take 1 cap BID Week 3: Take 1 cap TID glipizide 5 MG tablet extended release 24hr 2.5 mg PO DAILY Rx Instructions: BEFORE BREAKFAST betamethasone dipropionate 1 DOSE cream 1 gm topical PRN PRN (Reason: Rash) Rx Instructions: 2 weeks on and 2 weeks off morning and night ascorbic acid (vitamin C) 1,000 MG tablet 1,000 mg PO DAILY magnesium oxide 400 MG tablet 400 mg PO HS calcium 500 mg Tablet 1,000 mg PO QAM zinc 25 mg Tablet 30 mg PO 3XW cholecalciferol (vitamin D3) [Vitamin D3] 25 mcg (1,000 unit) Tablet 25 mcg PO QDAY Entresto 24-26 mg tablet 1 tab PO BID Entresto 49-51 mg Tablet 1 tab PO BID B Complex-Iron 1 tablet tablet 25 mg PO BIDWMEAL Rx Instructions: 1 tablet with lunch, 1 tablet with dinner Follow Up Plan Follow up with: Elian Galan MD [Physician] - 06/28/22 10:40 am Patient Disposition: Home, Self-Care Rehab Potential: Good Overall status at discharge: patient is progressing back to baseline Discharge Orders: Discharge Order (Routine); Ordered 06/07/22 Ordered By: Elian Galan QUALITY VTE Deep Vein Thrombosis/Pulmonary Embolism Present on Admission: No
[2022-06-08] MEDS ORDERED: WARFARIN 5 MG TABLET PO ONE (14:00)
[2022-06-08 15:38] LABS: ALT/SGPT 18 U/L (<40); AST/SGOT 25 U/L (<40); Albumin 3.2 gm/dL (3.2-5.2); Albumin/Globulin Ratio 1.5 (1.0-2.3); Alkaline Phosphatase 78 U/L (39-117); Bilirubin,Direct 0.2 mg/dL (<0.3); Bilirubin,Total 0.6 mg/dL (0.1-1.0); Blood Urea Nitrogen 24 mg/dL (8-23); Calcium 8.9 mg/dL (8.6-10.4); Chloride 104 mmol/L (96-108); Globulin 2.2 gm/dL (2.2-3.7); Glomerular Filtration Rate 60; Glucose 155 mg/dL (70-105); Lactate Dehydrogenase 206 U/L (135-225); Phosphorous 2.9 mg/dL (2.5-4.5); Triglycerides 93 mg/dL (<150); Uric Acid 5.8 mg/dL (2.5-8.0)
== END 2022-06-08 16:18 | disposition home or self-care (01) | DRG 454 ==
LOC: MEDSUR 08:22
PROVIDERS: ADMIT Orthopaedic Surgery Orthopaedic Surgery of the Spine; ATTEND Orthopaedic Surgery Orthopaedic Surgery of the Spine